=== PATIENT | female | born 1970 | race Caucasian/White ===

== ENCOUNTER → 2018-02-06 13:00 | Outpatient (CLI) | payer OTHER, SELFPAY | PROVIDERS: Visit Provider Obstetrics & Gynecology | DX: Z12.4 Encounter for screening for malignant neoplasm of cervix (principal) | CPT/HCPCS: 88175; G0145 ==

== ENCOUNTER → 2019-02-13 | Outpatient (CLI) | payer OTHER, SELFPAY | END | disposition home or self-care (01) | LOC: LABSPEC 13:50 | PROVIDERS: Referring Provider Obstetrics & Gynecology; Visit Provider Obstetrics & Gynecology | DX: Z12.4 Encounter for screening for malignant neoplasm of cervix (principal) | CPT/HCPCS: 88175; G0145 ==

== ENCOUNTER → 2019-03-21 | Outpatient (CLI) | payer OTHER, SELFPAY ==
--- NOTE | 2019-03-21 | VAGW_PTH ---
PAT[facility]: [facility] U[id number] AGE/SX: 49/F ROOM: RE03/21/[address]: Dr. David Tellez MD : 1970 BED: DIS: 03/21/2019 SPEC #: [id number] RECD: 03/22/19 08:56 STATUS: [place] REYessenia #: [id number] MARIUSZ: 03/21/19 00:[address]: David Tellez DEPT: SURGICAL PATHOLOGY RECD BY: Tanner Romeo ENTERED: 03/22/19 08:57 SP TYPE: VAG WALL OTHR DR: Dr. Fermin Guthrie MD Tissues: Vagina, NOS Procedures: Surgery Specimen Level IV HEADER OPERATION: Colposcopy PRE-OP DIAGNOSIS: LSIL pap 02/12/19; hysterectomy TISSUE SUBMITTED: Vaginal biopsy MICROSCOPIC DIAGNOSIS Vaginal biopsy: Fragments of squamous mucosa, negative for dysplasia. SJ:brant 10/21/19 MICROSCOPIC DESCRIPTION Slides are reviewed. GROSS DESCRIPTION Received in fixative is one container labeled with the patient's name and designated vaginal biopsy. The specimen consists of multiple irregular fragments of galaviz soft tissue that in aggregate measure 1 x 0.3 x 0.1 cm. The specimen is totally submitted in one cassette. / SJ:rg 03/22/19 TC:5 CPT: 44327
== END | disposition home or self-care (01) ==
PROVIDERS: Referring Provider Obstetrics & Gynecology; Visit Provider Obstetrics & Gynecology
DX: Z90.710 Acquired absence of both cervix and uterus (principal)
CPT/HCPCS: 88305

== ENCOUNTER → 2020-03-24 | Outpatient (CLI) | payer OTHER, SELFPAY | END | disposition home or self-care (01) | LOC: LABSPEC 03-25 09:35 | PROVIDERS: Visit Provider Obstetrics & Gynecology | DX: Z12.4 Encounter for screening for malignant neoplasm of cervix (principal) | CPT/HCPCS: 88175; G0145 ==

== ENCOUNTER 2022-06-02 10:47 | Outpatient (CLI) | payer OTHER, SELFPAY ==
[2022-06-11 14:21] LABS: HPV APTIMA, High Risk Negative (Negative)
== END 2022-06-02 23:59 | disposition home or self-care (01) ==
LOC: LABSPEC 10:53
PROVIDERS: Visit Provider Obstetrics & Gynecology
DX: R87.610 Atypical squamous cells of undetermined significance on cytologic smear of cervix (ASC-US) (principal)
CPT/HCPCS: 87624; 88175; G0145